=== PATIENT | male | born 1965 | race Caucasian/White ===

== ENCOUNTER 2017-09-18 19:15 | Inpatient (IN) | payer BC ==
[2017-09-18] MEDS ORDERED: SODIUM CHLORIDE 0.9% 1,000 ML IV STA (20:03)
[2017-09-18] MEDS ORDERED: ACETAMINOPHEN TAB 500 MG TAB PO STA (20:03)
[2017-09-18] MEDS ORDERED: IPRATROPIUM-ALBUTEROL 3 ML NEB INHALATION STA (20:17)
--- NOTE | 2017-09-18 20:17 | ED ---
General Adult HPI - General Chief complaint: Weakness Stated complaint: Fever 103.5/ Vomiting Time Seen by Provider: 09/18/17 20:03 Source: patient, RN notes reviewed, old records reviewed Mode of arrival: wheelchair Limitations: no limitations - History of Present Illness Initial comments: 52-year-old male with no significant past medical history presents for evaluation of fever, cough, and generalized weakness. Patient was seen at urgent care, diagnosed with viral infection. Patient has worsened over the past several days. He Cough. Which was occasionally productive of mucus. Patient denies central chest pain, he's had some chest pain throughout his rib cage worse with coughing. He said several episodes of vomiting and dry heaving. Denies any abdominal pain. Does report generalized weakness. His had one episode of diarrhea. No dysuria or hematuria. - Related Data Previous Rx's Medication Instructions Recorded HYDROcodone/APAP 5-325MG [[place] 5] 1 - 2 each PO Q6HR PRN #30 tab 08/08/13 Ondansetron Odt [Zofran Odt] 4 mg PO Q8HR PRN #10 tab 08/08/13 Tamsulosin HCl [Flomax] 0.4 mg PO DAILY #10 cap 08/08/13 Allergies Allergy/AdvReac Type Severity Reaction Status Date / Time No Known Allergies Allergy Verified 09/18/17 19:40 Review of Systems ROS Statement: Those systems with pertinent positive or pertinent negative responses have been documented in the HPI. ROS Other: All systems not noted in ROS Statement are negative. Past Medical History Past Medical History: Hypertension History of Any Multi-Drug Resistant Organisms: None Reported Past Surgical History: Orthopedic Surgery Additional Past Surgical History / Comment(s): right knee Past Psychological History: No Psychological Hx Reported Smoking Status: Never smoker Past Alcohol Use History: None Reported Past Drug Use History: None Reported General Exam Limitations: no limitations General appearance: in no apparent distress, lethargic Head exam: Present: atraumatic, normocephalic Eye exam: Present: normal appearance, PERRL ENT exam: Present: mucous membranes dry Neck exam: Present: normal inspection. Absent: tenderness, meningismus Respiratory exam: Present: decreased breath sounds. Absent: respiratory distress, wheezes Cardiovascular Exam: Present: normal rhythm, tachycardia GI/Abdominal exam: Present: soft. Absent: distended, tenderness, guarding, rebound Extremities exam: Present: normal inspection, normal capillary refill. Absent: pedal edema, calf tenderness Neurological exam: Present: alert, oriented X3, CN II-XII intact. Absent: motor sensory deficit Psychiatric exam: Present: normal affect, normal mood Skin exam: Present: warm, dry, intact. Absent: cyanosis, diaphoretic Course Vital Signs 09/18/17 09/18/17 09/18/17 19:36 20:12 20:19 Temperature 102.8 F H 104.3 F H Pulse Rate 118 H 105 H 103 H Pulse Rate [ 102 H Home Attendant ] Respiratory 18 18 18 Rate Blood Pressure 144/84 147/71 O2 Sat by Pulse 91 L 91 L 97 Oximetry 09/18/17 09/18/17 09/18/17 20:35 20:41 21:16 Temperature 102.5 F H Pulse Rate 103 H 101 H 91 Pulse Rate [ Home Attendant ] Respiratory 16 16 18 Rate Blood Pressure 136/74 O2 Sat by Pulse 95 Oximetry EKG Findings - EKG Comments: EKG Findings:: EKG: Sinus tachycardia, T-wave inversion in the inferior leads, ventricular rate of 110, NM interval 160, QRS duration 104, QTC 424 STsegmentelevationordepression Medical Decision Making - Medical Decision Making 52-year-old male presenting with cough, fever, generalized weakness. Chest x- rays obtained, patient has large left-sided pneumonia. CBC and CMP are unremarkable. Patient is requiring supplemental oxygen, has an oxygen saturation the high 80s without oxygen and in the mid to low 90s with 2-3 L. He will be admitted for treatment of community acquired pneumonia with hypoxia. - Lab Data Result diagrams: 09/18/17 20:10 09/18/17 20:10 Lab Results 09/18/17 09/18/17 09/18/17 Range/Units 20:10 20:10 20:10 WBC 9.9 (3.8-10.6) k/uL RBC 4.55 (4.30-5.90) m/uL Hgb 13.3 (13.0-17.5) gm/dL Hct 39.2 (39.0-53.0) % MCV 86.1 (80.0-100.0) fL MCH 29.3 (25.0-35.0) pg MCHC 34.0 (31.0-37.0) g/dL RDW 14.4 (11.5-15.5) % Plt Count 255 (150-450) k/uL Neutrophils % 80 % Lymphocytes % 10 % Monocytes % 7 % Eosinophils % 0 % Basophils % 0 % Neutrophils # 7.9 H (1.3-7.7) k/uL Lymphocytes # 1.0 (1.0-4.8) k/uL Monocytes # 0.7 (0-1.0) k/uL Eosinophils # 0.0 (0-0.7) k/uL Basophils # 0.0 (0-0.2) k/uL Sodium 136 L (137-145) mmol/L Potassium 4.1 (3.5-5.1) mmol/L Chloride 99 (98-107) mmol/L Carbon Dioxide 24 (22-30) mmol/L Anion Gap 13 mmol/L BUN 14 (9-20) mg/dL Creatinine 1.00 (0.66-1.25) mg/dL Est GFR (CKD-EPI)AfAm >90 (>60 ml/min/1.73 sqM) Est GFR (CKD-EPI)NonAf 87 (>60 ml/min/1.73 sqM) Glucose 110 H (74-99) mg/dL Plasma Lactic Acid Osmar 1.1 (0.7-2.0) mmol/L Calcium 8.8 (8.4-10.2) mg/dL Total Bilirubin 0.7 (0.2-1.3) mg/dL AST 64 H (17-59) U/L ALT 96 H (21-72) U/L Alkaline Phosphatase 113 (38-126) U/L Total Protein 6.7 (6.3-8.2) g/dL Albumin 3.7 (3.5-5.0) g/dL Disposition Clinical Impression: Community acquired pneumonia Disposition: ADMITTED IP TO THIS [facility] Condition: Stable Is patient prescribed a controlled substance at d/c from ED?: No Referrals: Johnathan Garsia DO [Primary Care Provider] - 1-2 days Decision to Admit Reason: Admit from EC Decision Date: 09/18/17 Decision Time: 21:47
[2017-09-18 20:24] LABS: Basophils % (A) 0 %; Eosinophils % (A) 0 %; HCT 39.2 % (39.0-53.0); HGB 13.3 gm/dL (13.0-17.5); Lymphocytes % (A) 10 %; MCH 29.3 pg (25.0-35.0); MCV 86.1 fL (80.0-100.0); Mean Platelet Volume 6.7; Monocytes # (A) 0.7 k/uL (0-1.0); Monocytes % (A) 7 %; Neutrophils # (A) 7.9 k/uL (1.3-7.7); Neutrophils % (A) 80 %; Platelet Count 255 k/uL (150-450); RBC 4.55 m/uL (4.30-5.90); RDW 14.4 % (11.5-15.5); WBC 9.9 k/uL (3.8-10.6)
[2017-09-18 20:36] LABS: ALT 96 U/L (21-72); AST 64 U/L (17-59); Albumin 3.7 g/dL (3.5-5.0); Alkaline Phosphatase 113 U/L (38-126); Anion Gap 13 mmol/L; Blood Urea Nitrogen 14 mg/dL (9-20); Calcium 8.8 mg/dL (8.4-10.2); Carbon Dioxide 24 mmol/L (22-30); Chloride 99 mmol/L (98-107); Glucose 110 mg/dL (74-99); Potassium 4.1 mmol/L (3.5-5.1); Sodium 136 mmol/L (137-145); Total Bilirubin 0.7 mg/dL (0.2-1.3); Total Protein 6.7 g/dL (6.3-8.2)
--- NOTE | 2017-09-18 21:22 | XR ---
EXAMINATION TYPE: XR chest 2V DATE OF EXAM: 09/18/2017 COMPARISON: None HISTORY: 52-year-old male with fever TECHNIQUE: AP and lateral views FINDINGS: Heart upper limits of normal in size. Aorta and pulmonary vasculature are within normal limits. Exten sive consolidation left upper lobe. No pleural effusion. IMPRESSION: Extensive left upper lobe pneumonia. Follow-up after treatment to ensure clearance.
[2017-09-18] MEDS ORDERED: KETOROLAC 30 MG/ML 1 ML VIAL IVP STA (21:23)
[2017-09-18] MEDS ORDERED: cefTRIAXone IN SWFI 1,000 MG/10 ML SYRINGE IVP STA (21:25)
[2017-09-18] MEDS ORDERED: AZITHROMYCIN 500 MG in DEXTROSE 5% IN WATER 250 ML IVPB STA ×2 (21:26)
[2017-09-18] MEDS ORDERED: ALBUTEROL NEBULIZED 2.5 MG/3 ML INHALATION PRN (21:27)
[2017-09-18] MEDS ORDERED: NALOXONE 0.4 MG/ML 1 ML VIAL IV PRN (21:31)
[2017-09-18] MEDS: SODIUM CHLORIDE 0.9% 1,000 ML IV SCH (21:32)
[2017-09-18 23:06] VITALS: BMI 41.2
[2017-09-19] MEDS: IBUPROFEN 400 MG TAB PO PRN ×3 (04:20→17:13)
[2017-09-19 05:16] LABS: Appearance,Urine Clear (Clear); Bilirubin,Urine Negative (Negative); Blood,Urine Small (Negative); Color,Urine Yellow; Glucose,Urine (UA) Negative (Negative); Ketones,Urine Negative (Negative); Leukocyte Esterase,Urine Negative (Negative); Mucus,Urine Occasional /hpf; Nitrite,Urine Negative (Negative); Protein,Urine 2+ (Negative); RBC,Urine 1 /hpf (0-5); Specific Gravity,Urine 1.017 (1.001-1.035); WBC,Urine 2 /hpf (0-5)
[2017-09-19] MEDS: SODIUM CHLORIDE 0.9% 1,000 ML IV SCH ×2 (11:50→13:54)
[2017-09-19] MEDS: ACETAMINOPHEN TAB 325 MG TAB PO PRN (17:55)
--- NOTE | 2017-09-19 20:45 | HP ---
HISTORY AND PHYSICAL DATE OF SERVICE: 09/19/17. PRESENTING COMPLAINT: Cough, fever, chills. HISTORY OF PRESENTING COMPLAINT: A very pleasant 52-year-old patient of Dr. Garsia. The only remarkable history is that of hypertension. The patient 5 days ago started off with increasing bouts of coughing, minimal sputum, developed fever, chills, decreased appetite, tired, run down, shaking quite a bit. The patient finally decided to come down to the ER. The patient is found to have a pneumonia on the left upper lobe, started on IV azithromycin and ceftriaxone. The patient did spike a fever up to 104 on presentation, feeling some response. REVIEW OF SYSTEMS: CONSTITUTIONAL: Febrile, weak, tired, chills. HEENT: None. RESPIRATORY: As above. CARDIOVASCULAR: None. GASTROINTESTINAL: None. GENITOURINARY: None. MUSCULOSKELETAL: None. DERMATOLOGICAL, HEMATOLOGIC, LYMPHATIC: None. PSYCHIATRY: None. NEUROLOGICAL: None. PAST MEDICAL HISTORY: Hypertension. PAST SURGICAL HISTORY: Adenoidectomy, orthopedic surgery, tonsillectomy, right knee surgery. SOCIAL HISTORY: Does not smoke or drink alcohol. Lives with sister. Works at [employer] in the [place]. FAMILY HISTORY: Diabetes. HOME MEDICATIONS: 1. Advil 800 mg q.6 p.r.n. 2. Norvasc 10 mg p.o. daily. ALLERGIES: None. PHYSICAL EXAMINATION: T-max 104.3, pulse 103, respiration 18, blood pressure 140/71, pulse ox 97% on 3-L. GENERAL APPEARANCE: Well built, BMI 41.2, lying in bed, tired appearing. EYES: Pupils equal. Conjunctivae normal. HEENT: External appearance of nose and ears normal. Oral cavity normal. NECK: JVD not raised. Mass not palpable. RESPIRATORY: Effort increased. Lungs, diminished breath sounds. CARDIOVASCULAR 1st and 2nd sounds, no edema. ABDOMEN: Soft, nontender. Liver and spleen not palpable. LYMPHATIC: No lymph node palpable in the neck or axillae. PSYCHIATRY: Alert and oriented x3. Mood and affect anxious-appearing. NEUROLOGICAL: Pupils equal. Cranial nerves grossly intact. Power and sensation grossly intact. INVESTIGATIONS: White count 9.9, increased neutrophils. Potassium 4.1, AST 64, ALT 96. Chest x-ray shows left upper lobe infiltrate rather dense. ASSESSMENT: 1. Acute severe left upper lobe pneumonia causing sepsis, present on admission. 2. Morbid obesity, BMI 41.2. 3. Essential hypertension. PLAN: Patient is started on IV ceftriaxone and Zithromax. Will increase IV fluids to 125 mL/hour. Lovenox for DVT prophylaxis. The patient not bringing up much sputum. Care was discussed with the patient. Questions were answered. MARYLIN / DIMA: [id number] /
[2017-09-19] MEDS: ENOXAPARIN 40 MG/0.4 ML SYRINGE SQ SCH (20:52)
[2017-09-19] MEDS: cefTRIAXone IN SWFI 1,000 MG/10 ML SYRINGE IVP SCH (20:55)
[2017-09-19] MEDS: LACTATED RINGERS 1,000 ML IV SCH (20:55)
[2017-09-19] MEDS ORDERED: AZITHROMYCIN 500 MG in DEXTROSE 5% IN WATER 250 ML IVPB SCH ×2 (22:00)
[2017-09-19] MEDS: AZITHROMYCIN 500 MG TAB PO SCH (22:14)
[2017-09-20] MEDS: ACETAMINOPHEN TAB 325 MG TAB PO PRN ×2 (01:44→19:44)
[2017-09-20] MEDS: LACTATED RINGERS 1,000 ML IV SCH ×3 (06:12→21:30)
[2017-09-20] MEDS: IBUPROFEN 400 MG TAB PO PRN (08:00)
[2017-09-20 09:23] LABS: Basophils % (A) 0 %; Eosinophils # (A) 0.1 k/uL (0-0.7); Eosinophils % (A) 1 %; HCT 34.9 % (39.0-53.0); HGB 11.5 gm/dL (13.0-17.5); Lymphocytes # (A) 0.8 k/uL (1.0-4.8); Lymphocytes % (A) 10 %; MCH 28.5 pg (25.0-35.0); MCHC 32.9 g/dL (31.0-37.0); MCV 86.6 fL (80.0-100.0); Monocytes # (A) 0.5 k/uL (0-1.0); Monocytes % (A) 6 %; Neutrophils # (A) 6.3 k/uL (1.3-7.7); Neutrophils % (A) 79 %; Platelet Count 249 k/uL (150-450); RBC 4.03 m/uL (4.30-5.90); RDW 14.6 % (11.5-15.5); WBC 7.9 k/uL (3.8-10.6)
[2017-09-20 09:49] LABS: Anion Gap 11 mmol/L; Blood Urea Nitrogen 13 mg/dL (9-20); Calcium 8.4 mg/dL (8.4-10.2); Carbon Dioxide 28 mmol/L (22-30); Chloride 100 mmol/L (98-107); Glucose 108 mg/dL (74-99); Potassium 3.9 mmol/L (3.5-5.1); Sodium 139 mmol/L (137-145)
[2017-09-20] MEDS: cefTRIAXone IN SWFI 1,000 MG/10 ML SYRINGE IVP SCH (20:44)
[2017-09-20] MEDS: ENOXAPARIN 40 MG/0.4 ML SYRINGE SQ SCH (20:44)
[2017-09-20] MEDS: AZITHROMYCIN 500 MG TAB PO SCH (21:30)
[2017-09-20] MEDS ORDERED: LACTATED RINGERS 1,000 ML IV SCH (23:15)
--- NOTE | 2017-09-21 01:17 | PN ---
PROGRESS NOTE DATE OF SERVICE: 09/20/2017 PRESENTING COMPLAINT: Cough, fever, chills. INTERVAL HISTORY: This patient presented with severe pneumonia. Feels better today. Fever has started to come down. Less sputum production. Appetite is getting better. No chills today. REVIEW OF SYSTEMS: Done for constitutional, cardiovascular, GI, pulmonary; relevant findings as above. CURRENT MEDICATIONS: Reviewed. They include IV ceftriaxone and Zithromax. PHYSICAL EXAMINATION: On examination, temperature this morning was 100.6, pulse 55, respiration 18, blood pressure 176/94, pulse ox 98% on room air. GENERAL APPEARANCE: Sitting up, looking better. EYES: Pupils equal. Conjunctivae normal. HEENT: External appearance of nose and ears normal. Oral cavity normal. NECK: JVD not raised. Mass not palpable. RESPIRATORY: Effort increased. LUNGS: Decreased breath sounds. CARDIOVASCULAR: First and second sounds normal. No edema. ABDOMEN: Soft, non-tender. Liver and spleen not palpable. PSYCHIATRY: Alert and oriented x3. Mood and affect normal. INVESTIGATIONS: White count 7.9, hemoglobin 11.5. ASSESSMENT: 1. Acute severe left upper lobe pneumonia causing sepsis with some clinical improvement. Patient seems to be responding to current antibiotic. 2. Morbid obesity; body mass index of 41.2. 3. Essential hypertension. Care was discussed with the patient. Will continue the current antibiotics. Since the appetite is getting better, would drop down the fluids. Repeat a chest x-ray in the morning. MMODL / IJN: [id number] /
--- NOTE | 2017-09-21 07:35 | XR ---
EXAMINATION TYPE: XR chest 2V DATE OF EXAM: 09/21/2017 COMPARISON: Prior chest x-ray 09/18/2017 HISTORY: Follow-up pneumonia TECHNIQUE: Frontal and lateral views of the chest are obtained. FINDINGS: Increased density is present at the level of the posterior costophrenic angle on the left. Abnormal increased density also present in the left upper lobe progressed in the interval. No pneumo thorax or pleural effusion. Heart size is stable, enlarged. IMPRESSION: Findings compatible with patient's history of pneumonia, follow-up is recommended to res olution.
[2017-09-21 07:43] LABS: Basophils % (A) 0 %; Eosinophils # (A) 0.1 k/uL (0-0.7); Eosinophils % (A) 1 %; HCT 35.2 % (39.0-53.0); HGB 11.6 gm/dL (13.0-17.5); Lymphocytes % (A) 13 %; MCH 28.3 pg (25.0-35.0); MCHC 32.9 g/dL (31.0-37.0); MCV 85.9 fL (80.0-100.0); Mean Platelet Volume 7.1; Monocytes # (A) 0.5 k/uL (0-1.0); Monocytes % (A) 6 %; Neutrophils # (A) 6.1 k/uL (1.3-7.7); Neutrophils % (A) 76 %; Platelet Count 286 k/uL (150-450); RDW 14.6 % (11.5-15.5); WBC 8.1 k/uL (3.8-10.6)
[2017-09-21 08:00] LABS: Anion Gap 11 mmol/L; Blood Urea Nitrogen 13 mg/dL (9-20); Calcium 8.3 mg/dL (8.4-10.2); Carbon Dioxide 28 mmol/L (22-30); Chloride 99 mmol/L (98-107); Glucose 83 mg/dL (74-99); Potassium 3.7 mmol/L (3.5-5.1); Sodium 138 mmol/L (137-145)
[2017-09-21] MEDS: IBUPROFEN 400 MG TAB PO PRN (12:39)
[2017-09-21] MEDS: ENOXAPARIN 40 MG/0.4 ML SYRINGE SQ SCH (19:41)
[2017-09-21] MEDS: cefTRIAXone IN SWFI 1,000 MG/10 ML SYRINGE IVP SCH (21:18)
[2017-09-21] MEDS: AZITHROMYCIN 500 MG TAB PO SCH (21:18)
[2017-09-21 21:49] VITALS: PULSE 78
[2017-09-22] MEDS: IBUPROFEN 400 MG TAB PO PRN (03:28)
--- NOTE | 2017-09-22 05:14 | PN ---
PROGRESS NOTE DATE OF SERVICE: 09/21/2017 PRESENTING COMPLAINT: Cough. INTERVAL HISTORY: Patient presented with severe pneumonia. The patient had presented with fever and chills. Had no further chills. Appetite continues to improve. Patient was more out of bed today. Very little sputum. Patient is mostly swallowing it. No more fevers. REVIEW OF SYSTEMS: Review of systems done for constitutional, cardiovascular, GI, pulmonary; relevant findings as above. CURRENT MEDICATIONS: Current medications are reviewed that include IV ceftriaxone and Zithromax. PHYSICAL EXAMINATION: On examination, T-max 101.7 last night, afebrile today, pulse 70, respirations 18, blood pressure 150/84, pulse ox 94% on room air. GENERAL APPEARANCE: Lying in bed, more comfortable. EYES: Pupils equal. Conjunctivae normal. HENT: External appearance of nose and ears normal. Oral cavity normal. NECK: JVD not raised. Mass not palpable. RESPIRATORY: Effort increased. LUNGS: Decreased breath sounds. CARDIOVASCULAR: First and second sounds normal. No edema. ABDOMEN: Soft, nontender. Liver and spleen not palpable. PSYCHIATRY: Alert and oriented x3. Mood and affect normal. INVESTIGATIONS: White count 8.1, hemoglobin 11.6. Potassium 3.7. X-ray shows actually increased infiltrate on the left side. ASSESSMENT: 1. Acute severe left upper lobe pneumonia causing sepsis. There is some radiological extension but clinically the patient is actually doing better. Appetite is much improved. Chills are gone and the patient does feel better. 2. Morbid obesity, body mass index 41.2. 3. Essential hypertension. PLAN: Care was discussed with the patient. Clinically patient is actually looking better. There may be a radiological lag which often times happen. We will keep the patient and will get a pulmonary opinion given patient's left shift has improved and there is no worsening of white count. MMODL / IJN: [id number] /
[2017-09-22 07:48] VITALS: BP 142/85; RESP 20; TEMP 97.7
[2017-09-22 08:14] LABS: Basophils % (A) 1 %; Eosinophils # (A) 0.2 k/uL (0-0.7); Eosinophils % (A) 2 %; HCT 38.4 % (39.0-53.0); HGB 12.4 gm/dL (13.0-17.5); Lymphocytes # (A) 1.4 k/uL (1.0-4.8); Lymphocytes % (A) 16 %; MCH 28.2 pg (25.0-35.0); MCHC 32.3 g/dL (31.0-37.0); MCV 87.3 fL (80.0-100.0); Mean Platelet Volume 6.7; Monocytes # (A) 0.6 k/uL (0-1.0); Monocytes % (A) 7 %; Neutrophils # (A) 6.2 k/uL (1.3-7.7); Neutrophils % (A) 73 %; Platelet Count 327 k/uL (150-450); RDW 14.6 % (11.5-15.5); WBC 8.5 k/uL (3.8-10.6)
[2017-09-22 08:48] LABS: Anion Gap 7 mmol/L; Blood Urea Nitrogen 15 mg/dL (9-20); Calcium 8.7 mg/dL (8.4-10.2); Carbon Dioxide 31 mmol/L (22-30); Chloride 102 mmol/L (98-107); Glucose 96 mg/dL (74-99); Potassium 4.2 mmol/L (3.5-5.1); Sodium 140 mmol/L (137-145)
--- NOTE | 2017-09-22 14:08 | XR ---
EXAMINATION TYPE: XR chest 2V DATE OF EXAM: 09/22/2017 COMPARISON: Prior chest 09/21/2017 HISTORY: Pneumonia TECHNIQUE: Frontal and lateral views of the chest are obtained. FINDINGS: Findings are similar to prior exam, there may be some slight interval in aeration. IMPRESSION: Findings compatible with patient's history of pneumonia.
--- NOTE | 2017-09-22 15:34 | P.CNPUL ---
History of Present Illness Consult date: 09/22/17 Reason for consult: dyspnea, pneumonia History of present illness: A healthy obese 52-year-old male patient with a BMI of 41.2 presented to the emergency department approximately 3 days ago with cough, generalized weakness and fever. The patient was also having some increased shortness of breath. The patient was at urgent care and he was diagnosed having a viral infection. His condition got worse and he came into the hospital where he was found to have an extensive consolidation of the left upper lobe. The patient had episodes of vomiting and dry heaves. No pleurisy. No hemoptysis. No dysuria fixed or urgency. No diarrhea. The patient had only one bout of diarrhea. In the ED the patient was started on accommodation of Rocephin and Zithromax. The follow-up chest x-ray showed some worsening of the left upper lobe infiltrate. Clinically the patient was doing better and he was less hypoxic compared to the day before. I was asked to consult on this patient today. He is already been on 3 days of antibiotics. His white count is not elevated. I repeated the chest x-ray and the findings are compatible with a pneumonia and the there is some slight interval improvement in aeration of the left lung. Meanwhile, the patient is doing much better clinically the patient is less short of breath and he is currently on room air ambulating and tolerating diet and is able to tolerate oral antibiotics. Legionella urine antigen was sent today. Blood cultures been negative. Sputum cultures was not collected. Review of Systems Constitutional: Reports fatigue, Reports fever Eyes: denies blurred vision, denies bulging eye, denies decreased vision Ears: deny: decreased hearing, ear discharge, earache, tinnitus Ears, nose, mouth and throat: Denies headache, Denies sore throat Cardiovascular: Reports decreased exercise tolerance, Reports dyspnea on exertion Respiratory: Reports cough, Reports cough with sputum, Reports dyspnea, Reports respiratory infections Gastrointestinal: Denies abdominal pain, Denies diarrhea, Denies nausea, Denies vomiting Genitourinary: Reports as per HPI Musculoskeletal: Reports as per HPI Musculoskeletal: absent: ankle pain, ankle stiffness, ankle swelling Integumentary: Denies pruritus, Denies rash Neurological: Denies numbness, Denies weakness Psychiatric: Reports as per HPI Endocrine: Reports as per HPI Hematologic/Lymphatic: Reports as per HPI Allergic/Immunologic: Reports as per HPI Past Medical History Past Medical History: Hypertension History of Any Multi-Drug Resistant Organisms: None Reported Past Surgical History: Adenoidectomy, Orthopedic Surgery, Tonsillectomy Additional Past Surgical History / Comment(s): right knee Past Anesthesia/Blood Transfusion Reactions: No Reported Reaction Past Psychological History: No Psychological Hx Reported Smoking Status: Never smoker Past Alcohol Use History: None Reported Past Drug Use History: None Reported - Past Family History Mother History Unknown: Yes Family Medical History: Diabetes Mellitus Medications and Allergies Home Medications Medication Instructions Recorded Confirmed Type Ibuprofen [Advil] 800 mg PO Q6HR PRN 09/19/17 09/19/17 History Levofloxacin [Levaquin] 750 mg PO DAILY 7 Days #7 tab 09/22/17 Rx Allergies Allergy/AdvReac Type Severity Reaction Status Date / Time No Known Allergies Allergy Verified 09/19/17 08:13 Physical Exam Vitals: Vital Signs Temp Pulse Resp BP Pulse Ox 09/22/17 07:35 97.7 F 78 20 142/85 94 L 09/22/17 05:21 98.5 F 78 18 131/75 90 L 09/21/17 21:48 98.3 F 78 16 140/87 92 L Intake and Output 09/22/17 09/22/17 09/22/17 06:59 14:59 22:59 Other: Voiding Method Toilet # Voids 1 Gen. appearance obese, comfortable likely distress BMI is 41.2 Head exam was generally normal. There was no scleral icterus or corneal arcus. Mucous membranes were moist. Neck was supple and without jugular venous distension, thyromegaly, or carotid bruits. Carotids were easily palpable bilaterally. There was no adenopathy. Mallampati class IV Lung sounds are diminished and the patient is crackles anteriorly over the lingular segment of the left upper lobe Cardiac exam revealed the PMI to be normally situated and sized. The rhythm was regular and no extrasystoles were noted during several minutes of auscultation. The first and second heart sounds were normal and physiologic splitting of the second heart sound was noted. There were no murmurs, rubs, clicks, or gallops. Abdominal exam revealed normal bowel sounds. The abdomen was soft, non-tender, and without masses, organomegaly, or appreciable enlargement of the abdominal aorta. Examination of the extremities revealed easily palpable radial, femoral and pedal pulses. There was no cyanosis, clubbing or edema. Examination of the skin revealed no evidence of significant rashes, suspicious appearing nevi or other concerning lesions. Neurologically the patient is awake and alert and there is no focal neurological deficits. Examination of the skin revealed no evidence of significant rashes, suspicious appearing nevi or other concerning lesions. Results - Laboratory Findings CBC and BMP: 09/22/17 07:26 09/22/17 07:26 Abnormal lab findings: Abnormal Labs 09/18/17 09/18/17 09/19/17 20:10 20:10 05:05 RBC Hgb Hct Neutrophils # 7.9 H Lymphocytes # Sodium 136 L Carbon Dioxide Glucose 110 H Calcium AST 64 H ALT 96 H Urine Protein 2+ H Urine Blood Small H Urine Mucus Occasional H 09/20/17 09/20/17 09/21/17 08:49 08:49 07:02 RBC 4.03 L 4.10 L Hgb 11.5 L 11.6 L Hct 34.9 L 35.2 L Neutrophils # Lymphocytes # 0.8 L Sodium Carbon Dioxide Glucose 108 H Calcium AST ALT Urine Protein Urine Blood Urine Mucus 09/21/17 09/22/17 09/22/17 07:02 07:26 07:26 RBC Hgb 12.4 L Hct 38.4 L Neutrophils # Lymphocytes # Sodium Carbon Dioxide 31 H Glucose Calcium 8.3 L AST ALT Urine Protein Urine Blood Urine Mucus - Diagnostic Findings Chest x-ray: image reviewed Assessment and Plan Plan: Assessment 1 left upper lobe community acquired pneumonia, likely bacterial. Rule out possibility of Legionella pneumonia. Legionella urine antigen was sent. 2 acute hypoxic respiratory failure, recovered 3 shortness of breath secondary to above, improved 4 obesity with a BMI of 41.2 with features of obstructive sleep apnea. 5 hypertension Plan Clinically the patient is improved. The patient is on room air. The patient is ambulating. The patient is able to tolerate oral antibiotics. I think is reasonable to discharge this patient home. We'll check a Legionella urine antigen. We'll send the patient home on Levaquin 750 mg by mouth daily to be followed up in our office in a week's time for repeat chest x-ray to document resolution of the left upper lobe consolidation. Note that on today's chest x- ray there is some improvement in the aeration of the left upper lobe and this makes him more comfortable and treating this patient for discharge. Discharge per medicine. We'll follow in the office. May consider a sleep study as an outpatient basis in regards to the possibility of obstructive sleep apnea.
--- NOTE | 2017-09-23 06:06 | DS ---
DISCHARGE SUMMARY DATE OF ADMISSION: 09/18/17 DATE OF DISCHARGE: 09/22/2017 FINAL DIAGNOSES: 1. Acute severe left lobe pneumonia causing sepsis. 2. Morbid obesity BMI 41.2. 3. Essential hypertension. HOSPITAL COURSE: This patient presented with severe sepsis. X-ray was rather impressive, but clinically improved. At time of discharge, she was afebrile, tolerating a diet, up and about. No white count. I did discuss at length with Dr. Cervantes and also reviewed the x-ray. He okayed the patient to be discharged. EXAM: Lungs: Fair improved air entry. Cardiovascular: 1st and 2nd sounds normal. Discussion and discharge planning more than 35 minutes. DISCHARGE MEDICATIONS: 1. Advil 800 mg q.6h p.r.n. 2. Levaquin 750 mg daily for 7 days. The patient not to return to work for another 5 days. FOLLOW UP: Follow up with Dr. Garsia on 10/03/2017, Dr. Cervantes on September 29, 2017. Copy to Dr. Garsia. MMJOEL / JANN: [id number] /
== END 2017-09-22 16:45 | disposition home or self-care (01) | DRG 871 ==
LOC: EC 19:15 → 5MS5E 21:37
PROVIDERS: ADMIT Hospitalist; ATTEND Hospitalist
DX: A41.9 Sepsis, unspecified organism (principal); J15.9 Unspecified bacterial pneumonia; J96.01 Acute respiratory failure with hypoxia; Z68.41 Body mass index [BMI] 40.0-44.9, adult; R65.20 Severe sepsis without septic shock; E66.01 Morbid (severe) obesity due to excess calories; G47.33 Obstructive sleep apnea (adult) (pediatric); I10 Essential (primary) hypertension; Z83.3 Family history of diabetes mellitus; Z79.899 Other long term (current) drug therapy
CPT/HCPCS: 36415; 71046; 80048; 80053; 81001; 83605; 85025; 87040; 87449; 93005; 94640; 96361; 96365; 96375; 99285

== ENCOUNTER 2018-04-21 11:28 | Emergency (ER) | payer BC ==
[2018-04-21 11:36] VITALS: TEMP 97.7
--- NOTE | 2018-04-21 13:04 | CT ---
EXAMINATION TYPE: CT brain wo con DATE OF EXAM: 04/21/2018 COMPARISON: None HISTORY: Blurred vision CT DLP: 1109.4 mGycm Automated exposure control for dose reduction was used. Helical acquisition through the brain FINDINGS: There is no hemorrhage or hydrocephalus. There is a mass present extending from the sella turcica in a cephalad direction and measuring approximately 2.9 x 3.3 x 2.5 cm which show soft tissue attenuatio n and there is likely mass effect on the optic chiasm, bilateral internal carotid arteries, there is remodeling of the sella turcica. Lesion shows an hourglass configuration. Orbits are within normal li mits. 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 REPORT RELAYE D TELEPHONICALLY TO THE STAFF OF THE EMERGENCY CENTER AT THE TIME OF INTERPRETATION.
--- NOTE | 2018-04-21 13:53 | ED ---
General Adult HPI - General Chief complaint: Eye Problems Stated complaint: Vision problems Time Seen by Provider: 04/21/18 11:49 Source: patient, RN notes reviewed Mode of arrival: ambulatory Limitations: no limitations - History of Present Illness Initial comments: 52-year-old male with a past medical history of hypertension presents to the emergency department for a chief complaint of blurry vision. Patient states this has been ongoing for 6 months. He states vision is worsening. Patient states the vision is blurry in his central vision but denies any visual disturbances of peripheral vision. Patient denies noticing any black spots in his vision. He denies any eye pain or headache. Patient recently saw an eye doctor 3 weeks ago and states his eyes were perfect. He then saw an furnace packer who recommended emergent MRI. Patient has no other complaints at this time including shortness of breath, chest pain, abdominal pain, nausea or vomiting, headache. - Related Data Home Medications Medication Instructions Recorded Confirmed Ibuprofen [Advil] 800 mg PO Q6HR PRN 09/19/17 04/21/18 amLODIPine [Norvasc] 5 mg PO HS 04/21/18 04/21/18 Allergies Allergy/AdvReac Type Severity Reaction Status Date / Time No Known Allergies Allergy Verified 04/21/18 12:03 Review of Systems ROS Statement: Those systems with pertinent positive or pertinent negative responses have been documented in the HPI. ROS Other: All systems not noted in ROS Statement are negative. Past Medical History Past Medical History: Hypertension History of Any Multi-Drug Resistant Organisms: None Reported Past Surgical History: Adenoidectomy, Orthopedic Surgery, Tonsillectomy Additional Past Surgical History / Comment(s): right knee Past Anesthesia/Blood Transfusion Reactions: No Reported Reaction Past Psychological History: No Psychological Hx Reported Smoking Status: Never smoker Past Alcohol Use History: Occasional Past Drug Use History: None Reported - Past Family History Mother History Unknown: Yes Family Medical History: Diabetes Mellitus General Exam Limitations: no limitations General appearance: alert, in no apparent distress Head exam: Present: atraumatic, normocephalic, normal inspection Eye exam: Present: normal appearance, PERRL, EOMI. Absent: scleral icterus, conjunctival injection, periorbital swelling, periorbital tenderness ENT exam: Present: normal exam, normal oropharynx, mucous membranes moist, TM's normal bilaterally, normal external ear exam Neck exam: Present: normal inspection, full ROM. Absent: tenderness, meningismus, lymphadenopathy Respiratory exam: Present: normal lung sounds bilaterally. Absent: respiratory distress, wheezes, rales, rhonchi, stridor Cardiovascular Exam: Present: regular rate, normal rhythm, normal heart sounds. Absent: systolic murmur, diastolic murmur, rubs, gallop, clicks Neurological exam: Present: alert, oriented X3, CN II-XII intact, normal gait Expanded Patient oriented to: Present: person, place, time Speech: Present: fluid speech Cranial nerves: EOM's Intact: Normal, Nystagmus: Normal, Facial Sensation: Normal Cerebellar function: Romberg: Normal Upper motor neuron: Pronator Drift: Normal Sensory exam: Upper Extremity Light Touch: Normal, Upper Extremity Pin Prick: Normal, Lower Extremity Light Touch: Normal, Lower Extremity Pin Prick: Normal Motor strength exam: RUE: 5, LUE: 5, RLE: 5, LLE: 5 Eye Response: (4) open spontaneously Motor Response: (6) obeys commands Verbal Response: (5) oriented [place] Total: 15 Psychiatric exam: Present: normal affect, normal mood Course Vital Signs 04/21/18 04/21/18 11:34 13:59 Temperature 97.7 F Pulse Rate 71 77 Respiratory 20 16 Rate Blood Pressure 151/80 141/94 O2 Sat by Pulse 96 98 Oximetry Medical Decision Making - Medical Decision Making 52-year-old male presents to the emergency department for a chief complaint of visual changes. Patient complains of blurry vision in the central vision 6 months. Denies any black spots. No eye pain or headaches. On exam no focal neuro deficits. Patient is well appearing. Vitals are within acceptable limits. 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 Discussed these findings with patient as well as his primary care provider Dr. Garsia. At this time I recommend transfer by EMS down to [facility] due to visual changes and mass effect. However patient states he does not want to go by EMS. He states he has had the symptoms for 6 months and does not see the need to pay for an ambulance ride when he can have someone drive him. Patient is willing to sign out AGAINST MEDICAL ADVICE and have his son drive him down to [facility] for neurosurgery consult. I did tell patient not to drive himself as he has been having blurry vision. Patient also aware of this causing delay in care which could contribute to deterioration, worsening symptoms, permanent disability or even . Patient is aware of this. He is demonstrating decision making capacity. He states he will go today. I did attempt to have engineering secretary fax packet over to [facility] as well as send CT report to facilitate care however Nathan nurse manager of global says this cannot be done until [facility] requests info when patient arrives. However, I spoke with physician at [facility] ED who is aware of the situation and will be ready for his arrival. Disposition Clinical Impression: Pituitary macroadenoma Disposition: Left Against Medical Advice Condition: Good Instructions (If sedation given, give patient instructions): Pituitary Adenoma (ED) Additional Instructions: Please have family member drive you down to [facility] as soon as possible. Do not drive yourself. Return to the emergency department if you have any worsening symptoms. [facility]: [address] [place] [address] Is patient prescribed a controlled substance at d/c from ED?: No Referrals: Johnathan Garsia DO [Primary Care Provider] - 1-2 days Time of Disposition: 13:53
[2018-04-21 14:00] VITALS: BP 141/94; PULSE 77; RESP 16
== END 2018-04-21 14:35 | disposition left against medical advice (07) ==
LOC: EC 11:28
DX: D35.2 Benign neoplasm of pituitary gland (principal); I10 Essential (primary) hypertension; Z79.899 Other long term (current) drug therapy
CPT/HCPCS: 70450; 99284